=== PATIENT | female | born 1940 | race African-American/Black ===

== ENCOUNTER 2020-06-05 02:47 | Inpatient (IN) | payer MEDICARE ==
[~2020-06-05] VITALS: Ht 162.6 cm; Wt 64.9 kg
[2020-06-05] MEDS ORDERED: METOPROLOL TARTRATE 5MG/5ML VIAL IV ONE (03:45)
[2020-06-05 04:14] LABS: BASOPHILS % 0.6 % (0.0-2.0); EOSINOPHILS % 4.5 % (0.0-5.0); HEMATOCRIT. 36.5 % (36.0-48.0); HEMOGLOBIN. 11.9 g/dL (12.0-16.0); LYMPHOCYTES % 20.8 % (20.0-50.0); MEAN CORPUSCULAR HEMOGLOBIN 28.8 pg (28.0-32.0); MEAN CORPUSCULAR VOLUME 88.3 fL (81.0-99.0); MEAN PLATELET VOLUME 8.3 fl (7.4-10.4); MONOCYTES % 13.4 % (2.0-8.0); NEUTROPHILS % 60.7 % (40.0-76.0); PLATELET 215 x1000/uL (130-400); RED BLOOD CELL COUNT 4.13 mill/uL (4.2-5.4)
[2020-06-05 04:20] LABS: CHLORIDE 106 mEq/L (98-107)
[2020-06-05 04:42] LABS: D-DIMER 0.68 mg/L FEU (<0.50); PROTHROMBIN TIME 10.5 sec (9.6-11.0)
[2020-06-05] MEDS ORDERED: DILTIAZEM HCL 5MG/ML 5ML VIAL IV ONE (05:15)
[2020-06-05] MEDS ORDERED: DILTIAZEM HCL 125 MG in DEXT 5% WATER 100 ML IV ONE (05:15)
[2020-06-05 09:07] VITALS: BP 120/72
[2020-06-05] MEDS ORDERED: ATOR20TA MT (09:15)
[2020-06-05] MEDS ORDERED: DYZ MT (09:18)
[2020-06-05] MEDS ORDERED: GABA-532 MT (09:19)
[2020-06-05] MEDS ORDERED: MELO15TA13 MT (09:19)
[2020-06-05] MEDS ORDERED: DOCUSATE SODIUM 100MG CAPSULE PO PRN (10:30)
[2020-06-05] MEDS ORDERED: MAGNESIUM/ALUMINUM HYDROXIDE/SIMETHICONE 30ML UDC PO PRN (10:30)
[2020-06-05] MEDS ORDERED: HYDROCODONE/ACETAMINOPHEN 5/325MG TABLET PO PRN (10:30)
[2020-06-05] MEDS ORDERED: IPRATROPIUM/ALBUTEROL 0.5-3(2.5)MG/3ML NEB NEB PRN (10:30)
[2020-06-05] MEDS ORDERED: LORAZEPAM 0.5MG TABLET PO PRN (10:30)
[2020-06-05] MEDS ORDERED: ACETAMINOPHEN 650MG SUPP PR PRN (10:30)
[2020-06-05] MEDS ORDERED: ACETAMINOPHEN 325MG TABLET PO PRN (10:30)
[2020-06-05] MEDS ORDERED: POTASSIUM CHLORIDE 20MEQ TABLET SR PO NR (10:30)
[2020-06-05] MEDS ORDERED: CLONIDINE 0.1MG TABLET PO PRN (10:30)
[2020-06-05] MEDS ORDERED: ONDANSETRON HCL 4MG/2ML INJ IV PRN (10:30)
[2020-06-05] MEDS ORDERED: DIPHENHYDRAMINE 50MG/ML VIAL IV PRN (10:30)
[2020-06-05] MEDS ORDERED: DIGOXIN 500MCG/2ML AMP IV NR (10:30)
[2020-06-05] MEDS ORDERED: GUAIFENESIN 200MG/10ML SUGAR FREE UDC PO PRN (10:30)
[2020-06-05] MEDS: PANTOPRAZOLE SODIUM 40 MG/VIAL IV SCH (10:30)
[2020-06-05] MEDS ORDERED: NA PHOS,M-B/NA PHOS,DI-BA ENEMA 118ML PR PRN (10:30)
[2020-06-05] MEDS: ENOXAPARIN 80MG/0.8ML SYR SUBCUT SCH ×2 (11:24→21:16)
[2020-06-05 12:00] VITALS: BP 132/62
[2020-06-05] MEDS ORDERED: LIDOCAINE HCL 1% 20ML VIAL (Pyxis) INJ ONE (13:50)
[2020-06-05] MEDS ORDERED: METOPROLOL TARTRATE 25MG TABLET PO NR (14:15)
[2020-06-05 14:38] LABS: CLARITY URINE CLOUDY (CLEAR); COLOR URINE YELLOW (YELLOW); KETONES URINE NEGATIVE (NEGATIVE); LEUKOCYTE ESTERASE URINE TRACE (NEGATIVE); NITRITE URINE NEGATIVE (NEGATIVE); OCCULT BLOOD URINE NEGATIVE (NEGATIVE); PH URINE 8.5 (4.5-8.0); PROTEIN URINE TRACE (NEGATIVE); SPECIFIC GRAVITY URINE 1.023 (1.005-1.030)
[2020-06-05 14:53] LABS: *AMPHETAMINES SCREEN URINE NEGATIVE (NEGATIVE); *BARBITURATES SCREEN URINE NEGATIVE (NEGATIVE)
[2020-06-05 14:54] LABS: *BENZODIAZEPINES SCREEN URINE NEGATIVE (NEGATIVE); *COCAINE SCREEN URINE NEGATIVE (NEGATIVE); CANNABINOID URINE SCREEN NEGATIVE (NEGATIVE); METHADONE URINE SCREEN NEGATIVE (NEGATIVE); OPIATES URINE SCREEN NEGATIVE (NEGATIVE); PHENCYCLIDINE URINE SCREEN NEGATIVE (NEGATIVE)
[2020-06-05] MEDS ORDERED: IOHEXOL-350 100 ML BOTTLE ONE (15:16)
[2020-06-05 16:00] VITALS: BP 151/84
[2020-06-05] MEDS: GABAPENTIN 300MG CAPSULE PO SCH (16:03)
[2020-06-05] MEDS: MELOXICAM 15 MG TABLET PO SCH (16:03)
[2020-06-05 17:48] LABS: CREATINE KINASE MB FRACTION 2.5 ng/mL (0.5-3.6)
[2020-06-05 20:00] VITALS: BP 96/44
[2020-06-05] MEDS ORDERED: ATORVASTATIN CALCIUM 20MG TABLET PO SCH (21:00)
[2020-06-05] MEDS: METOPROLOL TARTRATE 25MG TABLET PO SCH (21:00)
[2020-06-05 23:52] LABS: CREATINE KINASE MB FRACTION 2.5 ng/mL (0.5-3.6)
[2020-06-06] VITALS (7 sets, daily range): BP systolic 117–134; BP diastolic 48–74
[2020-06-06 06:26] LABS: BASOPHILS % 0.9 % (0.0-2.0); EOSINOPHILS % 5.9 % (0.0-5.0); HEMATOCRIT. 33.3 % (36.0-48.0); HEMOGLOBIN. 10.9 g/dL (12.0-16.0); LYMPHOCYTES % 18.7 % (20.0-50.0); MEAN CORPUSCULAR HEMOGLOBIN 29.1 pg (28.0-32.0); MEAN CORPUSCULAR VOLUME 89.1 fL (81.0-99.0); MEAN PLATELET VOLUME 9.1 fl (7.4-10.4); MONOCYTES % 14.4 % (2.0-8.0); NEUTROPHILS % 60.1 % (40.0-76.0); PLATELET 198 x1000/uL (130-400); RED BLOOD CELL COUNT 3.73 mill/uL (4.2-5.4)
[2020-06-06 07:38] LABS: CHLORIDE 112 mEq/L (98-107)
[2020-06-06 07:51] LABS: LDL CHOLESTEROL 152 mg/dL (5-100)
[2020-06-06 07:53] LABS: HDL CHOLESTEROL 75 mg/dL (40-59); T4 FREE 1.07 ng/dL (0.76-1.46)
[2020-06-06] MEDS: PANTOPRAZOLE SODIUM 40 MG/VIAL IV SCH (09:00)
[2020-06-06] MEDS: MELOXICAM 15 MG TABLET PO SCH (09:16)
[2020-06-06] MEDS: GABAPENTIN 300MG CAPSULE PO SCH ×3 (09:16→18:27)
[2020-06-06] MEDS: METOPROLOL TARTRATE 25MG TABLET PO SCH (09:16)
[2020-06-06] MEDS: ENOXAPARIN 80MG/0.8ML SYR SUBCUT SCH (09:17)
[2020-06-06] MEDS ORDERED: LIP40 MT (17:11)
[2020-06-06] MEDS ORDERED: METO25TA6 PO (17:11)
[2020-06-06] MEDS ORDERED: APIX5TAB MT (17:11)
[2020-06-06] MEDS ORDERED: ATORVASTATIN CALCIUM 20MG TABLET PO SCH (21:00)
== END 2020-06-06 21:00 | disposition home or self-care (01) | DRG 206 ==
LOC: ER 02:47 → 6WST 05:49 → EDBEDREQTM 07:01 → EDBEDREQSVC 07:01 → ENRESERV 07:59
PROVIDERS: ADMIT Internal Medicine; ATTEND Internal Medicine
PROC: B548ZZA Ultrasonography of Superior Vena Cava, Guidance (ICD-10-PCS; principal; 2020-06-05)
PROC: 02HV33Z Insertion of Infusion Device into Superior Vena Cava, Percutaneous Approach (ICD-10-PCS; 2020-06-05)
PROC: B5181ZA Fluoroscopy of Superior Vena Cava using Low Osmolar Contrast, Guidance (ICD-10-PCS; 2020-06-05)
DX: M94.0 Chondrocostal junction syndrome [Tietze] (principal); D68.59 Other primary thrombophilia; I48.0 Paroxysmal atrial fibrillation; D64.9 Anemia, unspecified; D72.819 Decreased white blood cell count, unspecified; E78.00 Pure hypercholesterolemia, unspecified; E78.5 Hyperlipidemia, unspecified; I11.9 Hypertensive heart disease without heart failure; E87.6 Hypokalemia; G62.9 Polyneuropathy, unspecified; M19.90 Unspecified osteoarthritis, unspecified site; Z20.822 Contact with and (suspected) exposure to COVID-19; Z79.01 Long term (current) use of anticoagulants; Z79.899 Other long term (current) drug therapy; Z88.6 Allergy status to analgesic agent
CPT/HCPCS: 36415; 36573; 71045; 71275; 80053; 80061; 80305; 81003; 82550; 82553; 83735; 83880; 84439; 84443; 84484; 85025; 85379; 87426; 93005; 93306; 93970; 97162; 99291; C1725; C9113; J1160; J1650; J3490; J7060; Q9967